=== PATIENT | female | born 1985 | race Caucasian/White ===

== ENCOUNTER 2023-10-18 11:25 | Emergency (ER) | payer MEDICAID ==
[~2023-10-18] VITALS: Ht 165.1 cm; Wt 70.3 kg
[2023-10-18 11:37] VITALS: O2SAT 100
[2023-10-18 12:10] LABS: *BILIRUBIN,URIN 1+ (NEGATIVE); *BLOOD, URINE 1+ (NEGATIVE); *CLARITY,URINE SLIGHTLY CLOUDY (CLEAR); *COLOR,URINE YELLOW (YELLOW); *KETONES,URINE TRACE (NEGATIVE); *PROTEIN,URINE TRACE (NEGATIVE); LEUKOCYTE ESTERASE ,URINE 2+ (NEGATIVE); NITRITE, URINE NEGATIVE (NEGATIVE); PH,URINE 5.5 (5.0-8.0); UGLUCOSE NEGATIVE (NEGATIVE)
[2023-10-18] MEDS ORDERED: AZITHROMYCIN 250 MG TABLET ONE (12:20)
[2023-10-18] MEDS ORDERED: predniSONE 50 MG TABLET ONE (12:21)
[2023-10-18] MEDS ORDERED: ACYCLOVIR 200 MG CAPSULE ONE (12:21)
[2023-10-18] MEDS ORDERED: ONDANSETRON ODT 4 MG TAB.RAPDIS ONE (12:21)
[2023-10-18 12:22] LABS: BACTERIA,URINE MANY /HPF (NONE SEEN); SQUAMOUS EPITHELIAL CELL,UR MANY /HPF (NONE SEEN)
[2023-10-18] MEDS ORDERED: HYDROCODONE/APAP 5-325MG TABLET ONE (12:22)
[2023-10-18] MEDS: ONDANSETRON ODT 4 MG TAB.RAPDIS SL ONE (12:22)
[2023-10-18] MEDS ORDERED: VALA10002 PO (12:23)
[2023-10-18] MEDS ORDERED: HYDR-3972 PO (12:23)
[2023-10-18] MEDS ORDERED: PRED50TA PO (12:23)
[2023-10-18 12:24] LABS: WBC,URINE 50-80 /HPF (0-3)
[2023-10-18] MEDS: ACYCLOVIR 400 MG TABLET PO ONE (12:25)
[2023-10-18] MEDS: AZITHROMYCIN 250 MG TABLET PO ONE (12:25)
[2023-10-18] MEDS: HYDROCODONE/APAP 5-325MG TABLET PO ONE (12:31)
[2023-10-18] MEDS: predniSONE 50 MG TABLET PO ONE (12:31)
[2023-10-18 12:57] LABS: HIV-1 p24 ANTIGEN NON REACTIVE (NONREACTIVE); HIV-1/2 ANTIBODY NON REACTIVE (NONREACTIVE)
[2023-10-20 23:09] LABS: *CHLAMYDIA NAA Negative (Negative); *GC NAA Negative (Negative); *TRIC.VAG. NAA Negative (Negative)
== END 2023-10-18 12:38 | disposition home or self-care (01) ==
LOC: ER 11:26
DX: N76.5 Ulceration of vagina (principal); Z79.891 Long term (current) use of opiate analgesic; Z79.899 Other long term (current) drug therapy
CPT/HCPCS: 99284; 86592; 81001; 87806; 36415; 87086; 87491; 87536; J7512; A4606; A4663; Q0144; Q0162